=== PATIENT | male | born 1950 | race Caucasian/White ===

== ENCOUNTER 2016-12-20 07:12 | Emergency (ER) | payer OTHER ==
[~2016-12-20] VITALS: Ht 175.3 cm; Wt 77.1 kg
--- NOTE | 2016-12-20 08:17 | ED GI/GU/ABDOMINAL COMPLAINT ---
History of Present Illness General Chief Complaint: Abdominal Pain/Flank Pain Stated Complaint: FEVER, CHILLS, HX OF DIVERTICULITIS Source: patient, family Exam Limitations: no limitations Vital Signs & Intake/Output Vital Signs & Intake/Output Vital Signs Date Time Temp Pulse Resp B/P Pulse O2 O2 Flow FiO2 Ox Delivery Rate 12/20 1042 100.1 82 18 109/65 98 12/20 0756 99 Room Air 12/20 0730 97.8 99 20 11/ 99 Room Air Allergies Coded Allergies: shellfish derived (Intermediate, HIVES 05/22/16) Reconcile Medications Hyoscyamine (Levsin) 0.125 MG TABLET 1 TAB PO Q4 PRN abdominal spasms Ondansetron (Zofran Odt) 4 MG TAB.RAPDIS 1 TAB SL TID PRN nausea Triage Note: C/O LLQ ABDOMINAL PAIN X 1 WEEK, SAW PMD ON 12/14, DXD WITH DIVERTICULITIS BY EXAM, PUT ON CIPRO AND FLAGYL, C/O CHILLS AND FEVER SINCE YESTERDAY. Triage Nurses Notes Reviewed? yes Onset: Gradual Duration: day(s): (6) Timing: remote history Quality/Severity: sharpness Severity Numbers: 6 Location: left lower quadrant Radiation: no radiation Activities at Onset: none Prior Abdominal Problems: similar symptoms Past Sexual History: Unobtainable at this time HPI: Patient is a 66-year-old male presenting to the emergency department with chief complaint of left lower quadrant abdominal pain worsening over the past 2 days. Patient reports that the abdominal pain initially started 6 days ago, saw his primary care physician who started him on Cipro and Flagyl. He reports that he was doing better over the next couple days and then suddenly to days ago he started getting worsening left lower quadrant pain, chills, fevers up to 101, CHILLS with nausea and vomiting and diarrhea. No blood in the vomit or diarrhea. He reports diarrhea was very watery. No recent travel. Denies any recent imaging of his abdomen. Last episode of diverticulitis was 10 years ago. Pain is currently moderate. 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 Took 1 g of Tylenol at 2 AM for fever. (GUIDO ARNOLD) Past History Travel History Traveled to [place] past 21 day No Medical History Any Pertinent Medical History? see below for history Neurological: NONE EENT: NONE Cardiovascular: hypertension Respiratory: NONE Gastrointestinal: NONE Hepatic: NONE Renal: NONE Musculoskeletal: fracture, gout Psychiatric: depression Endocrine: hypothyroidism Blood Disorders: NONE Cancer(s): NONE MANUFACTURING PRODUCTION MANAGER/Reproductive: NONE Surgical History Surgical History: non-contributory Psychosocial History What is your primary language Azeri Tobacco Use: Never used ETOH Use: occasional use Family History Hx Contributory? No (GUIDO ARNOLD) Review of Systems Review of Systems Constitutional: Reports: see HPI, chills, fever. Comments Review of systems: See HPI, All other systems negative. Constitutional, no weight loss HEENT: No visual changes no sore throat no congestion Cardiovascular: No chest pain ,palpitation , orthopnea or ankle swelling Skin, no jaundice no rashes Respiratory: No dyspnea cough sputum or hemoptysis GI: Positive nausea, vomiting, diarrhea : No dysuria No hematuria Muscle skeletal: no back pain, no neck pain, Neurologic: No numbness no confusion, no headache Psych: No stress anxiety or depression,. Heme/endocrine: No bruising no bleeding no polyuria or polydipsia Immunology: No splenectomy or history of AIDS (GUIDO ARNOLD) Physical Exam Physical Exam General Appearance: well developed/nourished, no apparent distress, alert, awake , UNCOMFORTABLE Gastrointestinal: normal bowel sounds, soft, tenderness Comments: Well-developed well-nourished person in no acute distress HEENT:Pupils equally round and reactive to light and accommodation. Nose is atraumatic. Slightly dry oral mucosa. Neck: Supple, no lymphadenopathy, normal range of motion without pain or tenderness Back: Nontender, no CVA tenderness. Full range of motion Cardiovascular: Regular rate and rhythms no murmurs rubs or gallops, normal JVP Respiratory: Chest nontender. No respiratory distress.breath sounds clear to auscultation bilaterally Abdomen: Soft, tentative palpation in the left lower quadrant, no rebound or guarding, nondistended, no appreciable organomegaly. Normal bowel sounds. No ascites Extremity: No edema Neuro: Alert oriented x3 Skin: No appreciable rash on exposed skin, skin is warm and dry. Psych: Mood and affect is normal, memory and judgment is normal. Core Measures ACS in differential dx? No Severe Sepsis Present: No Septic Shock Present: No (GUIDO ARNOLD) Progress Differential Diagnosis: UTI/pyelo, perforated diverticulitis, worsening diverticulitis, failed outpatient treatment, dehydration, electrolyte abnormality, C. difficile, influenza, viral syndrome Plan of Care: Orders Procedure Date/time Status RAPID VIRAL INFLUENZA A 12/20 810 Complete BLOOD CULTURE 12/20 810 Active LACTIC ACID 12/20 810 Complete COMPREHENSIVE METABOLIC PANEL 12/20 810 Complete CBC WITHOUT DIFFERENTIAL 12/20 810 Complete Laboratory Tests 12/20/16 1111: Lactic Acid Cancelled 12/20/16 0825: Anion Gap 13, Estimated GFR 56 L, BUN/Creatinine Ratio 16.2, Glucose 128 H, Lactic Acid 1.4, Calcium 9.2, Total Bilirubin 0.6, AST 30, ALT 37, Alkaline Phosphatase 66, Total Protein 7.1, Albumin 4.2, Globulin 2.9, Albumin/Globulin Ratio 1.4, CBC w Diff MAN DIFF ORDERED, RBC 4.93, MCV 92.8, MCH 31.5 H, RDW 14.2, MPV 8.8, Gran % 89.4 H, Lymphocytes % 4.3 L, Monocytes % 6.2, Eosinophils % 0, Basophils % 0.1, Absolute Granulocytes 10.9 H, Segmented Neutrophils 77 H, Band Neutrophils 11 H, Absolute Lymphocytes 0.5 L, Lymphocytes 2 L, Monocytes 10 H, Absolute Monocytes 0.8 H, Absolute Eosinophils 0, Absolute Basophils 0, Platelet Estimate VERIFIED BY SMEAR, Normocytic RBCs VERIFIED, Normochromic RBCs VERIFIED, PUBS MCHC 33.9 Microbiology 12/20 832 BLOOD: Blood Culture - RECD 12/20 824 BLOOD: Blood Culture - RECD Diagnostic Imaging: Viewed by Me: CT Scan. Discussed w/RAD: CT Scan. Radiology Impression: PATIENT: POLLO CHAUDHARI PRESENT AGE: 66 PATIENT ACCOUNT NO: [id number] : 52 LOCATION: [facility] ORDERING PHYSICIAN: GUIDO IQBAL SERVICE DATE: 12/20/16 EXAM TYPE: CAT - CT ABD & PELVIS W IV CONTRAST EXAMINATION: CT ABDOMEN AND PELVIS WITH CONTRAST CLINICAL INFORMATION: Left lower quadrant pain, fever, rule out diverticulitis COMPARISON: 05/22/2016 TECHNIQUE: Multidetector volumetric imaging was performed of the abdomen and pelvis before and after the IV administration of 94 mL of Optiray 320 intravenous contrast. Sagittal and coronal reformatted images were obtained on the technologist's workstation. DLP: 311.48 mGy-cm FINDINGS: LUNG BASES: The visualized lung bases are unremarkable. LIVER, GALLBLADDER, AND BILIARY TREE: The liver is normal in size, shape, and attenuation. No focal hepatic lesion or biliary ductal dilatation is present. The gallbladder is unremarkable with no evidence of radiopaque gallstones, gallbladder wall thickening, or obvious pericholecystic inflammatory changes. PANCREAS: Unremarkable. SPLEEN: Unremarkable. ADRENAL GLANDS: Unremarkable. KIDNEYS AND URETERS: The kidneys are normal in size, shape, and attenuation. There is a redemonstrated right renal cyst measuring approximately 4.4 cm in diameter. No hydronephrosis bilaterally. There is a 2 mm mid to upper left renal calculus. There is an exophytic right upper pole renal lesion measuring up to 1.0 cm in diameter on coronal image 61; this has a density of approximately 63 Hounsfield units. Review of prior study from 05/22/2016 shows that this measured 59 Hounsfield units on that unenhanced study, favoring that this is a hemorrhagic or proteinaceous cyst. BLADDER: Unremarkable. GASTROINTESTINAL TRACT: There is moderate diverticulosis of the sigmoid colon. Though the colon is not fully distended, there is suspected wall thickening extending from the mid descending colon through the distal sigmoid colon with mild adjacent stranding suspicious for a colitis. No evidence of bowel obstruction. The appendix is unremarkable. No free fluid or free air is seen. ABDOMINAL WALL: No significant hernia is appreciated. LYMPH NODES: Normal. VASCULAR: Unremarkable. PELVIC VISCERA: Unremarkable. OSSEOUS STRUCTURES: Healed lateral lower left rib fractures are noted. Degenerative changes are present in the lumbar spine. IMPRESSION: 1. Wall thickening and mild surrounding stranding extending from the mid descending colon through the distal sigmoid colon, suspicious for colitis. Although there is moderate diverticulosis, no dominant focal region of inflammation is seen to strongly suggest a focal diverticulitis. 2. Small hyperdense lesion off the upper right kidney, favored to represent a hemorrhagic/proteinaceous cyst. Initial ED EKG: none Comments: 12/20/2016 8:54:44 AM on arrival patient is afebrile no acute distress, he took a 1 g of Tylenol approximately 6 hours prior to arrival. Patient does have reproducible pain in left lower quadrant. Looks uncomfortable. Patient recently treated for suspected diverticulitis. Symptoms are worsening despite antibiotics. Patient will go for CT to rule perforated diverticulitis, potential 5 outpatient treatment. Patient also works in the school, this could be a viral syndrome. IV fluids initiated along with Toradol, Zofran. 12/20/2016 11:29:14 AM patient informed of all of her results, imaging study results. Likely nonspecific colitis. Patient taking metronidazole and Cipro. He will continue taking those medications. Patient tolerating by mouth without difficulty. Patient will be treated with Levsin, Zofran. He'll follow up with his PCP in the next 24 hours-48hrs for reevaluation or he will come back for reevaluation if he cannot get in. d/w dr lea and he agrees with plan. (NICOLLE IQBAL,GUIDO) Departure Departure Time of Disposition: 1124 Disposition: HOME OR SELF CARE Condition: Stable Clinical Impression Primary Impression: Colitis Referrals: ANNIE LUTHER MD (PCP/Family) Additional Instructions: Follow-up with her primary care physician in the next 24 hours to 48 hours for reevaluation. Take Zofran as prescribed for nausea. Take Levsin as prescribed for abdominal discomfort. Return for worsening symptoms or concerns or if he able to see her primary care physician in next 1-2 days. RESENT AGE: 66 PATIENT ACCOUNT NO: [id number] : 52 LOCATION: [facility] ORDERING PHYSICIAN: GUIDO IQBAL SERVICE DATE: 12/20/16 EXAM TYPE: CAT - CT ABD & PELVIS W IV CONTRAST EXAMINATION: CT ABDOMEN AND PELVIS WITH CONTRAST CLINICAL INFORMATION: Left lower quadrant pain, fever, rule out diverticulitis COMPARISON: 05/22/2016 TECHNIQUE: Multidetector volumetric imaging was performed of the abdomen and pelvis before and after the IV administration of 94 mL of Optiray 320 intravenous contrast. Sagittal and coronal reformatted images were obtained on the technologist's workstation. DLP: 311.48 mGy-cm FINDINGS: LUNG BASES: The visualized lung bases are unremarkable. LIVER, GALLBLADDER, AND BILIARY TREE: The liver is normal in size, shape, and attenuation. No focal hepatic lesion or biliary ductal dilatation is present. The gallbladder is unremarkable with no evidence of radiopaque gallstones, gallbladder wall thickening, or obvious pericholecystic inflammatory changes. PANCREAS: Unremarkable. SPLEEN: Unremarkable. ADRENAL GLANDS: Unremarkable. KIDNEYS AND URETERS: The kidneys are normal in size, shape, and attenuation. There is a redemonstrated right renal cyst measuring approximately 4.4 cm in diameter. No hydronephrosis bilaterally. There is a 2 mm mid to upper left renal calculus. There is an exophytic right upper pole renal lesion measuring up to 1.0 cm in diameter on coronal image 61; this has a density of approximately 63 Hounsfield units. Review of prior study from 05/22/2016 shows that this measured 59 Hounsfield units on that unenhanced study, favoring that this is a hemorrhagic or proteinaceous cyst. BLADDER: Unremarkable. GASTROINTESTINAL TRACT: There is moderate diverticulosis of the sigmoid colon. Though the colon is not fully distended, there is suspected wall thickening extending from the mid descending colon through the distal sigmoid colon with mild adjacent stranding suspicious for a colitis. No evidence of bowel obstruction. The appendix is unremarkable. No free fluid or free air is seen. ABDOMINAL WALL: No significant hernia is appreciated. LYMPH NODES: Normal. VASCULAR: Unremarkable. PELVIC VISCERA: Unremarkable. OSSEOUS STRUCTURES: Healed lateral lower left rib fractures are noted. Degenerative changes are present in the lumbar spine. IMPRESSION: 1. Wall thickening and mild surrounding stranding extending from the mid descending colon through the distal sigmoid colon, suspicious for colitis. Although there is moderate diverticulosis, no dominant focal region of inflammation is seen to strongly suggest a focal diverticulitis. 2. Small hyperdense lesion off the upper right kidney, favored to represent a hemorrhagic/proteinaceous cyst. DICTATED BY: DERRICK RUBIO MD DATE/TIME DICTATED:12/20/161032 RETORT CONDENSER ATTENDANT:CARLITOS DATE/TIME TRANSCRIBED:12/20/161032 CONFIDENTIAL, DO NOT COPY WITHOUT APPROPRIATE AUTHORIZATION. <Electronically signed in Other Vendor System> SIGNED BY: DERRICK RUBIO MD 12/20/16 1055 Departure Forms: Customer Survey General Discharge Information Prescriptions: Current Visit Scripts Hyoscyamine (Levsin) 1 TAB PO Q4 PRN abdominal spasms #20 TAB Ondansetron (Zofran Odt) 1 TAB SL TID PRN nausea #10 TAB (GUIDO ARNOLD) PA/MEDICAL OFFICER PSYCHIATRY Co-Sign Statement Statement: ED Attending supervision documentation- x I saw and evaluated the patient. I have also reviewed all the pertinent lab results and diagnostic results. I agree with the findings and the plan of care as documented in the PA's/MEDICAL OFFICER PSYCHIATRY's documentation. [] I have reviewed the ED Record and agree with the PA's/MEDICAL OFFICER PSYCHIATRY's documentation. [] Additions or exceptions (if any) to the PAs/MEDICAL OFFICER PSYCHIATRY's note and plan are summarized below: [] (RADHA AUGUSTINE,[place])
[2016-12-20 08:44] LABS: ABSOLUTE BASOPHIL COUNT 0 /CUMM (0.0-0.2); ABSOLUTE EOSINOPHIL COUNT 0 /CUMM (0.0-0.7); ABSOLUTE GRANULOCYTE CT 10.9 /CUMM (1.4-6.5); ABSOLUTE LYMPH COUNT 0.5 /CUMM (1.2-3.4); ABSOLUTE MONOCYTE COUNT 0.8 /CUMM (0.10-0.60); BASOPHIL % 0.1 % (0.0-2.0); EOSINOPHIL % 0 % (0-5); GRANULOCYTE % 89.4 % (42.2-75.2); HEMATOCRIT 45.8 % (42-52); MEAN CORPUSCULAR HGB 31.5 PG (27.0-31.0); MEAN CORPUSCULAR HGB CONC 33.9 G/DL (33.0-37.0); MEAN CORPUSCULAR VOLUME 92.8 FL (80.0-94.0); MEAN PLATELET VOLUME 8.8 FL (7.4-10.4); PLATELET COUNT 161 /CUMM (130-400); RBC DISTRIBUTION WIDTH 14.2 % (11.5-14.5); RED BLOOD CELL CT 4.93 /CUMM (4.70-6.10); WHITE BLOOD CELL COUNT 12.2 /CUMM (4.8-10.8)
--- NOTE | 2016-12-20 10:57 | CT SCAN REPORT ---
EXAMINATION: CT ABDOMEN AND PELVIS WITH CONTRAST CLINICAL INFORMATION: Left lower quadrant pain, fever, rule out diverticulitis COMPARISON: 05/22/2016 TECHNIQUE: Multidetector volumetric imaging was performed of the abdomen and pelvis before and after the IV administration of 94 mL of Optiray 320 intravenous contrast. Sagittal and coronal reformatted images were obtained on the technologist's workstation. DLP: 311.48 mGy-cm FINDINGS: LUNG BASES: The visualized lung bases are unremarkable. LIVER, GALLBLADDER, AND BILIARY TREE: The liver is normal in size, shape, and attenuation. No focal hepatic lesion or biliary ductal dilatation is present. The gallbladder is unremarkable with no evidence of radiopaque gallstones, gallbladder wall thickening, or obvious pericholecystic inflammatory changes. PANCREAS: Unremarkable. SPLEEN: Unremarkable. ADRENAL GLANDS: Unremarkable. KIDNEYS AND URETERS: The kidneys are normal in size, shape, and attenuation. There is a redemonstrated right renal cyst measuring approximately 4.4 cm in diameter. No hydronephrosis bilaterally. There is a 2 mm mid to upper left renal calculus. There is an exophytic right upper pole renal lesion measuring up to 1.0 cm in diameter on coronal image 61; this has a density of approximately 63 Hounsfield units. Review of prior study from 05/22/2016 shows that this measured 59 Hounsfield units on that unenhanced study, favoring that this is a hemorrhagic or proteinaceous cyst. BLADDER: Unremarkable. GASTROINTESTINAL TRACT: There is moderate diverticulosis of the sigmoid colon. Though the colon is not fully distended, there is suspected wall thickening extending from the mid descending colon through the distal sigmoid colon with mild adjacent stranding suspicious for a colitis. No evidence of bowel obstruction. The appendix is unremarkable. No free fluid or free air is seen. ABDOMINAL WALL: No significant hernia is appreciated. LYMPH NODES: Normal. VASCULAR: Unremarkable. PELVIC VISCERA: Unremarkable. OSSEOUS STRUCTURES: Healed lateral lower left rib fractures are noted. Degenerative changes are present in the lumbar spine. IMPRESSION: 1. Wall thickening and mild surrounding stranding extending from the mid descending colon through the distal sigmoid colon, suspicious for colitis. Although there is moderate diverticulosis, no dominant focal region of inflammation is seen to strongly suggest a focal diverticulitis. 2. Small hyperdense lesion off the upper right kidney, favored to represent a hemorrhagic/proteinaceous cyst.
[2016-12-20] MEDS ORDERED: LEVSIN0.125 M1 PO (11:27)
[2016-12-20] MEDS ORDERED: ZOFRAN ODT4 M1 SL (11:27)
[2016-12-20 12:00] VITALS: BP 125/79
== END 2016-12-20 13:03 ==
LOC: ERH 07:12
PROVIDERS: Physician Assistant
DX: K52.9 Noninfective gastroenteritis and colitis, unspecified (principal)
CPT/HCPCS: 74177; 87040; 87804; 87804-59; 96374; 96375; J1885; J2405